=== PATIENT | male | born 1955 | race Caucasian/White ===

== ENCOUNTER → 2024-10-09 | Outpatient (CLI) | payer MEDICARE, MEDICAID, SELFPAY ==
[2024-10-09 13:23] LABS: Alanine Aminotransferase 14 U/L (10-49); Albumin, Serum 4.7 gm/dL (3.4-4.8); Albumin/Globulin Ratio 1.5 (1.2-2.2); Alkaline Phosphatase 71 U/L (46-116); Anion Gap 8 (7-16); Aspartate Amino Transferase 15 U/L (0-34); BUN/Creatinine Ratio 16 Ratio (12-20); Bilirubin,Total 1.1 mg/dL (0.3-1.2); Blood Urea Nitrogen 23 mg/dL (9-23); Calcium 10.2 mg/dL (8.3-10.6); Calcium (Corrected) 10.2 mg/dL (8.5-10.1); Carbon Dioxide 24.9 mMol/L (20.0-31.0); Cardiac Risk Estimate 5.4 RATIO (4.0-6.7); Chloride 108 mMol/L (98-107); Cholesterol 178 mg/dL (132-200); Creatinine (Component) 1.4 mg/dL (0.6-1.3); Free T4 (Free Thyroxine) 1.26 ng/dL (0.89-1.76); Globulin 3.2 gm/dL (2.3-3.5); Glucose 119 mg/dL (74-106); HDL Cholesterol 33 mg/dL (40-60); LDL Cholesterol,Calculated 104 mg/dL (0-130); Osmolality,Calculated 285 (275-295); Potassium 3.8 mMol/L (3.4-5.1); Sodium 141 mMol/L (136-145); Total Protein 7.9 gm/dL (5.7-8.2); Triglycerides 207 mg/dL (30-150); eGFR 54 See Note
== END | disposition home or self-care (01) ==
LOC: COPL 12:24
PROVIDERS: PCP Family Medicine; Referring Provider Family Medicine; Visit Provider Family Medicine
DX: Z13.1 Encounter for screening for diabetes mellitus (principal); N42.9 Disorder of prostate, unspecified; E78.1 Pure hyperglyceridemia; E03.2 Hypothyroidism due to medicaments and other exogenous substances
CPT/HCPCS: 36415; 80053; 80061; 84153; 84439; 84443

== ENCOUNTER → 2025-07-23 | Outpatient (CLI) | payer MEDICARE, MEDICAID, SELFPAY ==
[2025-07-23 11:06] LABS: Alanine Aminotransferase 20 U/L (10-49); Albumin, Serum 4.9 gm/dL (3.4-4.8); Albumin/Globulin Ratio 1.5 (1.2-2.2); Alkaline Phosphatase 66 U/L (46-116); Anion Gap 13 (7-16); Aspartate Amino Transferase 21 U/L (0-34); BUN/Creatinine Ratio 13 Ratio (12-20); Bilirubin,Total 2.9 mg/dL (0.3-1.2); Blood Urea Nitrogen 17 mg/dL (9-23); Calcium 9.8 mg/dL (8.3-10.6); Calcium (Corrected) 9.8 mg/dL (8.5-10.1); Carbon Dioxide 26.3 mMol/L (20.0-31.0); Cardiac Risk Estimate 5.4 RATIO (4.0-6.7); Chloride 104 mMol/L (98-107); Cholesterol 173 mg/dL (132-200); Creatinine (Component) 1.3 mg/dL (0.6-1.3); Globulin 3.3 gm/dL (2.3-3.5); Glucose 103 mg/dL (74-106); HDL Cholesterol 32 mg/dL (40-60); LDL Cholesterol,Calculated 102 mg/dL (0-130); Osmolality,Calculated 286 (275-295); Potassium 3.3 mMol/L (3.4-5.1); Sodium 143 mMol/L (136-145); Total Protein 8.2 gm/dL (5.7-8.2); Triglycerides 196 mg/dL (30-150); eGFR 59 See Note
[2025-07-23 11:07] LABS: Prostate Specific Antigen 2.28 ng/mL (0-4.00)
== END | disposition home or self-care (01) ==
LOC: COPL 09:36
PROVIDERS: PCP Family Medicine; Referring Provider Family Medicine; Visit Provider Family Medicine
DX: E78.1 Pure hyperglyceridemia (principal); N42.9 Disorder of prostate, unspecified; Z13.1 Encounter for screening for diabetes mellitus
CPT/HCPCS: 36415; 80053; 80061; 84153